=== PATIENT | female | born 1960 | race African-American/Black ===

== ENCOUNTER 2017-04-03 16:26 | Emergency (ER) | payer MEDICAID ==
[~2017-04-03] VITALS: Ht 160 cm; Wt 64.0 kg
[~2017-04-03 16:26] MED LIST: MOTRIN; NORCO
[2017-04-03 17:41] VITALS: BP 115/84
== END 2017-04-03 20:00 | disposition left against medical advice (07) ==
LOC: ER 18:11
DX: Z53.21 Procedure and treatment not carried out due to patient leaving prior to being seen by health care provider (principal)

== ENCOUNTER 2017-04-05 07:33 | Emergency (ER) | payer MEDICAID, OTHER ==
[~2017-04-05] VITALS: Ht 160 cm; Wt 67.0 kg
[2017-04-05 09:25] LABS: CLARITY URINE CLOUDY (CLEAR); COLOR URINE YELLOW (YELLOW); KETONES URINE NEGATIVE (NEGATIVE); LEUKOCYTE ESTERASE URINE 3+ (NEGATIVE); NITRITE URINE NEGATIVE (NEGATIVE); OCCULT BLOOD URINE TRACE (NEGATIVE); PH URINE >=9.0 (4.5-8.0); PROTEIN URINE 1+ (NEGATIVE); SPECIFIC GRAVITY URINE 1.024 (1.005-1.030)
[2017-04-05] MEDS ORDERED: CEFTRIAXONE SODIUM 250 MG/VIAL IM NR (10:45)
[2017-04-05] MEDS ORDERED: AZITHROMYCIN 500 MG TABLET PO NR (10:45)
[2017-04-05] MEDS ORDERED: IBUPROFEN 600MG TABLET PO NR (10:45)
[2017-04-05] MEDS ORDERED: LIDOCAINE HCL/PF 1% 10 MG/ML 5ML VIAL IJ NR (10:45)
[2017-04-05 11:50] VITALS: BP 121/76
== END 2017-04-05 12:17 | disposition home or self-care (01) ==
LOC: ER 07:33
DX: J03.90 Acute tonsillitis, unspecified (principal); A59.9 Trichomoniasis, unspecified; N76.0 Acute vaginitis; H92.03 Otalgia, bilateral; Z88.6 Allergy status to analgesic agent; Z88.0 Allergy status to penicillin; Z87.891 Personal history of nicotine dependence
CPT/HCPCS: 81003; 87210; 96372; 99284; J0696; J3490; Z7610

== ENCOUNTER 2017-04-18 06:37 | Emergency (ER) | payer OTHER ==
[~2017-04-18] VITALS: Ht 160 cm; Wt 67.0 kg
[2017-04-18] MEDS ORDERED: ALBUTEROL (0.083%) 2.5MG/3ML NEB HHN STA (08:30)
[2017-04-18] MEDS ORDERED: IPRATROPIUM BROMIDE (0.02%) 0.5MG/2.5ML NEB HHN STA (08:30)
[2017-04-18] MEDS ORDERED: HYDROCODONE/ACETAMINOPHEN 5/325MG TABLET PO ONE (09:45)
[2017-04-18 10:22] VITALS: BP 102/65
== END 2017-04-18 11:33 | disposition home or self-care (01) ==
LOC: ER 06:37
DX: G89.29 Other chronic pain (principal); M54.2 Cervicalgia; R06.02 Shortness of breath; Z88.0 Allergy status to penicillin; Z87.891 Personal history of nicotine dependence
CPT/HCPCS: 94640; 99283; J7611

== ENCOUNTER 2017-04-22 09:41 | Emergency (ER) | payer OTHER ==
[~2017-04-22] VITALS: Ht 160 cm; Wt 67.0 kg
[2017-04-22 14:36] LABS: CHLORIDE 106 mEq/L (98-107)
[2017-04-22 14:43] LABS: BASOPHILS % 0.3 % (0.0-2.0); HEMATOCRIT. 32.8 % (36.0-48.0); HEMOGLOBIN. 11.1 g/dL (12.0-16.0); LYMPHOCYTES % 43.2 % (20.0-50.0); MEAN CORPUSCULAR HEMOGLOBIN 29.6 pg (28.0-32.0); MEAN CORPUSCULAR VOLUME 87.5 fL (81.0-99.0); MEAN PLATELET VOLUME 7.8 fl (7.4-10.4); MONOCYTES % 7.2 % (2.0-8.0); NEUTROPHILS % 47.3 % (40.0-76.0); PLATELET 325 x1000/uL (130-400); RED BLOOD CELL COUNT 3.75 mill/uL (4.2-5.4); RED CELL DISTRIBUTION WIDTH 13.6 % (11.6-14.6)
[2017-04-22 15:41] VITALS: BP 115/68
== END 2017-04-22 15:48 | disposition left against medical advice (07) ==
LOC: ER 10:59
DX: R42 Dizziness and giddiness (principal); N76.0 Acute vaginitis; F41.9 Anxiety disorder, unspecified; Z88.6 Allergy status to analgesic agent; Z88.0 Allergy status to penicillin
CPT/HCPCS: 36415; 80053; 84484; 85025; 86592; 93005; 99285

== ENCOUNTER 2019-09-27 07:44 | Emergency (ER) | payer MEDICAID, OTHER ==
[~2019-09-27] VITALS: Ht 160 cm; Wt 66.0 kg
[2019-09-27] MEDS ORDERED: ALBUTEROL (0.083%) 2.5MG/3ML NEB HHN STA (08:31)
[2019-09-27 08:40] LABS: BASOPHILS % 0.5 % (0.0-2.0); EOSINOPHILS % 2.7 % (0.0-5.0); HEMATOCRIT. 39.2 % (36.0-48.0); HEMOGLOBIN. 13.2 g/dL (12.0-16.0); LYMPHOCYTES % 29.5 % (20.0-50.0); MEAN CORPUSCULAR HEMOGLOBIN 29.8 pg (28.0-32.0); MEAN CORPUSCULAR VOLUME 88.9 fL (81.0-99.0); MEAN PLATELET VOLUME 8.3 fl (7.4-10.4); MONOCYTES % 10.5 % (2.0-8.0); NEUTROPHILS % 56.8 % (40.0-76.0); PLATELET 271 x1000/uL (130-400); RED BLOOD CELL COUNT 4.41 mill/uL (4.2-5.4); RED CELL DISTRIBUTION WIDTH 13.8 % (11.6-14.6)
[2019-09-27 08:47] LABS: CHLORIDE 109 mEq/L (98-107)
[2019-09-27 08:50] LABS: INR 0.9; PROTHROMBIN TIME 9.9 sec (9.6-11.0)
[2019-09-27 10:38] VITALS: BP 117/84
== END 2019-09-27 10:45 | disposition home or self-care (01) ==
LOC: ER 07:44
DX: R05 Cough (principal); R03.0 Elevated blood-pressure reading, without diagnosis of hypertension
CPT/HCPCS: 36415; 71045; 80053; 85025; 85610; 93005; 94640; 99285; Z7610